=== PATIENT | male | born 1975 | race Caucasian/White ===

== ENCOUNTER 2021-01-08 22:16 | Emergency (ER) | payer SELFPAY ==
[2021-01-08 22:29] VITALS: BP 152/74; PULSE 68; RESP 18; TEMP 36.5; O2SAT 97; BMI 26.6
--- NOTE | 2021-01-08 22:34 | DI.RAD.S_ITS ---
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 COMPARISON: None. FINDINGS: Bones: No fractures or dislocations. No suspicious bony lesions. Visualized ribs appear intact. Mild periarticular osteophyte formation at the acromioclavicular and glenohumeral joints. Soft tissues: No suspicious soft tissue calcifications. Left axillary surgical clips. IMPRESSION: Osteoarthritis. No acute fracture. No osseous lesion. If symptoms and/or clinical suspicion for pathology persist, further assessment with repeat, or advanced imaging (e.g., CT, MRI, or bone scan) may be helpful for further assessment. Concordant with preliminary interpretation. Dictated by: Martha Prescott M.D. on 01/09/2021 at 7:33 Approved by: Martha Prescott M.D. on 01/09/2021 at 7:33
--- NOTE | 2021-01-08 22:38 | PC.NURSE ---
Patient states he feels pain in the shoulder muscle and has limited mobility starting about 3 days ago. Ibuprofen and rest help, but it has persisted.
--- NOTE | 2021-01-08 23:16 | ED_ITS ---
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 It started approximately 4 days ago he does not describe any significant trauma or injury. He has been having fevers or chills he does not notice redness or warmth. He has never had similar findings he notices no numbness tingling or weakness down the arm but he does has significantly limited range of motion secondary to pain. Related Data Allergies Allergy/AdvReac Type Severity Reaction Status Date / Time No Known Drug Allergies Allergy Verified 01/08/21 22:33 Review of Systems Review of Systems Narrative: Pertinent positive and negative findings as per HPI Remainder of review of systems is otherwise unremarkable for Constitutional: Fevers, chills, weakness ENT: No sore throat, neck pain, ear pain CV: Chest pain, palpitations, Respiratory: Cough, wheeze, dyspnea Patient History Medical History (Updated 01/09/21 @ 00:53 by Richelle Romero MD) Malignant melanoma Social History Smoking Status: Never smoker Smoking Status: Never smoker alcohol intake frequency: 0-2 drinks per day Substance Use Type: does not use Exam Narrative Exam Narrative: General: Alert appropriate in no acute distress Respiratory: Able to speak in full sentences, no obvious respiratory distress Skin: No obvious rashes, warm and dry Neurologic: Grossly intact no obvious asymmetries or abnormalities Psych: appropriate insight and affect, cooperative Extremity: Left shoulder is examined. There is no increased warmth, redness, fullness or point tenderness. He has pain with external rotation and abduction and is only able to externally rotate approximately 45? and abduct only to approximately 40?. 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 Initial Vital Signs Initial Vital Signs: Vital Signs Temperature 97.7 F 01/08/21 22:29 Pulse Rate 68 01/08/21 22:29 Respiratory Rate 18 01/08/21 22:29 Blood Pressure 152/74 H 01/08/21 22:29 Pulse Oximetry 97 07/31/21 22:29 Course Orders Ordered: ED Orders 01/08/21 22:34 XR shoulder LT min 2V Stat Vital Signs Vital signs: Vital Signs - 8 hr 01/08/21 22:29 Temperature 97.7 F Pulse Rate 68 Respiratory Rate 18 Blood Pressure 152/74 H Pulse Oximetry 97 MDM - Extremity (Nontraumatic) Imaging Data X-ray left shoulder: Radiologist's Impression: No acute findings Rylan Baum MD [facility] Narrative Medical decision making narrative: 45-year-old gentleman with acute onset of left shoulder pain. No trauma no obvious infection, injury, deformity bony abnormality or evidence of metastatic melanoma. Ibuprofen does help with his overall pain. X-rays are reassuring. He is placed in a sling and recommended orthopedic follow-up. 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 He is safe for discharge home at this time Discharge Plan Departure Patient Disposition: Home Clinical Impression: Shoulder pain, left Qualifiers: Chronicity: acute Qualified Code(s): M25.512 - Pain in left shoulder Instructions: DI for Shoulder Pain Activity Restrictions/Additional Instructions: Thank you for coming in tonight Your x-ray was unremarkable. There is no suggestion of infection or any findings to suggest any recurrent melanoma spreading to the bone in the shoulder. At this time I am going to suggest you continue to use ibuprofen. Using 400 mg of ibuprofen (2 [id number] pills) and 1 Tylenol every 6 hours can be very helpful in controlling pain. Use the sling as needed for pain control I would also suggest that you follow-up with [facility]. You can contact them at [phone] I hope you are feeling better
== END 2021-01-09 00:56 | disposition home or self-care (01) ==
PROVIDERS: Emergency Provider Emergency Medicine
DX: M25.512 Pain in left shoulder (principal)
CPT/HCPCS: 73030; 99283

== ENCOUNTER → 2023-08-30 10:56 | Outpatient (CLI) | payer MEDICARE, SELFPAY ==
[2023-08-30 12:22] LABS: Add Manual Diff / Slide Review NO; Basophils Absolute Auto 0 /uL (0-100); Basophils Percent Auto 0.5 % (0-2); Eosinophils Absolute Auto 100 /uL (0-450); Eosinophils Percent Auto 1.5 % (2-4); Hematocrit 47.5 % (41-53); Hemoglobin 16.3 g/dL (13.5-17.5); Lymphocytes Absolute Auto 2100 /uL (1100-4500); Lymphocytes Percent Auto 23.4 % (25-40); Mean Corpuscular HGB Conc 34.4 % (30-36); Mean Corpuscular Hemoglobin 31.7 PG (26-34); Mean Corpuscular Volume 91.9 fL (80-100); Monocytes Absolute Auto 600 /uL (0-900); Monocytes Percent Auto 7.2 % (3-14); Neutrophils Absolute Auto 6000 /uL (1500-7000); Neutrophils Percent Auto 67.4 % (50-75); Platelet Count 320 X10^3/uL (150-400); Red Blood Cell Count 5.16 X10^6/uL (4.5-5.9); Red Cell Distribution Width 12.5 % (11.6-14.8); White Blood Cell Count 8.9 X10^3/uL (4.5-11.0)
[2023-08-30 12:28] LABS: Hemoglobin A1C% w Est Avg Glu 4.5 % (4.0-6.0)
[2023-08-30 12:46] LABS: Alanine Aminotransferase 48 IU/L (<50); Albumin 4.4 g/dL (3.5-5.0); Albumin Globulin Ratio 1.2 (1.0-2.8); Alkaline Phosphatase 92 U/L (38-126); Aspartate Aminotransferase 31 IU/L (17-59); BUN Creatinine Ratio 15.6 (6-22); Bilirubin Total 0.9 mg/dL (0.2-1.3); Blood Urea Nitrogen 14 mg/dL (9-20); Calcium 9.4 mg/dL (8.4-10.2); Carbon Dioxide 28 mmol/L (22-32); Chloride 104 mmol/L (98-107); Estimated Glomerular Filt Rate > 60 mL/min (>60); Globulin 3.6 g/dL (1.7-4.1); Glucose 91 mg/dL (70-100); HEMOLYSIS < 15 (0-50); Potassium 4.3 mmol/L (3.4-5.1); Sodium 140 mmol/L (137-145)
[2023-09-03 09:48] LABS: Osmolality, Serum 289 mOsmol/kg (275-295)
== END ==
LOC: LAB 10:58
PROVIDERS: PCP Family Medicine; Referring Provider Family Medicine; Visit Provider Family Medicine
DX: R35.89 Other polyuria (principal)
CPT/HCPCS: 36415; 80053; 83036; 83930; 85025

== ENCOUNTER → 2023-08-31 13:06 | Outpatient (CLI) | payer MEDICARE, SELFPAY ==
[2023-08-31 14:25] LABS: Appearance Urine UA CLEAR; Bilirubin Urine UA NEGATIVE (NEGATIVE); Color Urine UA YELLOW; Glucose Urine UA NEGATIVE (Negative); Ketones Urine UA NEGATIVE (NEGATIVE); Leukocyte Esterase Urine UA NEGATIVE (NEGATIVE); Nitrite Urine UA NEGATIVE (Negative); Occult Blood Urine UA NEGATIVE (Negative); Protein Urine UA NEGATIVE (Negative); pH Urine UA 6.5 (4.5-8.0)
[2023-08-31 14:44] LABS: Bacteria Urine None Seen; RBC Urine None Seen (0-5/HPF); Squamous Epithelial Cell Urine 0-1 /HPF (0-5/HPF); Urine Volume 10mL (spun); WBC Urine 0-1/HPF (0-5/HPF)
[2023-08-31 14:45] LABS: Culture Indicated Urine Cult Not Indicated
[2023-09-03 15:31] LABS: Osmolality Urine 752 mOsmol/kg (.)
== END ==
PROVIDERS: PCP Family Medicine; Referring Provider Family Medicine; Visit Provider Family Medicine
DX: R35.89 Other polyuria (principal)
CPT/HCPCS: 81001; 83935

== ENCOUNTER 2024-01-17 07:16 | Day surgery (SDC) | payer MEDICARE, SELFPAY ==
--- NOTE | 2024-01-17 | PATH_ITS ---
[facility] Accession Number: [id number] No. of containers..01 Tissue . 01 Material submitted: . cecum - CECAL POLYPS . 01 Diagnosis: CECAL POLYP, BIOPSY: Tubular adenoma. LADARIUS 01/21/2024 1003 Local . 01 Electronically signed: . Canelo Urbano MD, Pathologist NPI- [id number] . 01 Gross description: . Received in formalin with two patient identifiers and cecal polyp, is a single spencer soft tissue fragment 0.8 cm in greatest dimension. Submitted in cassette A1. ([id number]) /LADARIUS 01/18/2024 0959 Local . 01 Microscopic: . Polypoid colonic mucosa composed of columnar epithelium with hyperchromatic crowded nuclei. Findings consistent with tubular adenoma. Negative for malignancy. . 01 Pathologist provided ICD-10: K63.5 . 01 CPT . 141010 Specimen Comment: A courtesy copy of this report has been sent to [phone] Performed at: [address] [facility] [address], [place], [place] [id number] MD Carter Killian MD Phone: [phone]
[2024-01-17 07:33] VITALS: BP 144/89; PULSE 80; RESP 16; TEMP 36.2; O2SAT 96
[2024-01-17] MEDS: LACTATED RINGERS 1,000 ML 42 ML IV (07:45)
--- NOTE | 2024-01-17 07:45 | PM.HP.1 ---
History of Present Illness History of Present Illness Date Patient Seen: 01/17/24 Time Patient Seen: 07:45 Chief complaint: Screening Colonoscopy Narrative: Rogelio is a 48-year-old man who is here for his first screening colonoscopy. No first-degree family members with colon cancer. [facility] Medical History (Updated 01/17/24 @ 07:46 by Zay Addison MD) GERD (gastroesophageal reflux disease) History of malignant melanoma Polyuria Social History Smoking Status: Never smoker Meds Home Medications and Allergies Home Medications Medication Instructions Recorded Confirmed Type famotidine 20 mg tablet (Pepcid) 20 mg PO DAILY #30 tabs 08/30/23 01/17/24 Rx Allergies Allergy/AdvReac Type Severity Reaction Status Date / Time No Known Drug Allergies Allergy Verified 01/17/24 07:32 Exam Vital Signs (past 8 hours): - 01/17/24 07:33 Temperature 97.1 F L Pulse Rate 80 Respiratory Rate 16 Blood Pressure 144/89 H Pulse Oximetry 96 Oxygen Delivery Method Room Air Oxygen Delivery Method Room Air Const General: healthy appearing Resp Effort & Inspection: normal respiratory effort Assessment & Plan Assessment and plan (1) Colon cancer screening: Status: Acute Plan We reviewed the risks and benefits of colonoscopy for colon cancer screening and he would like to proceed. Time-Based Coding :: [TOTAL MINUTES] spent with patient and on the chart (including review of chart, obtaining history, exam, reviewing outside data, placing orders, documenting exam and treatment plan, and counseling patient) on [DATE].
--- NOTE | 2024-01-17 08:43 | PM.OP.COLON ---
Operative Date/Time/Diagnoses Date of procedure: 01/17/24 Time of procedure: 08:43 Pre-op diagnosis: Colon cancer screening Post-op diagnosis: same Procedure & Clinicians Study performed: Colonoscopy Same procedure as scheduled: Yes Surgeon: Zay Addison Procedure Notes Procedure in detail: Surgeon: Zay Addison MD Anesthesia: Jessenia Mariano MD Procedure: The patient was brought to the endoscopy suite, placed in left lateral decubitus position. The patient was connected to monitoring devices. A time-out was performed. Sedation was administered. Once the patient was adequately sedated, a digital rectal exam was performed and was normal. The scope was then inserted and advanced to the cecum where the appendiceal orifice was identified and photographed. The scope was then slowly withdrawn over greater than 6 minutes. The mucosa was thoroughly inspected. There was a 7 mm polyp in the cecum removed with a cold snare. The scope was retroflexed in the rectum. No other abnormalities were found. The scope was straightened and removed. The patient was awakened and brought to recovery. Scope withdrawal time: 9 minutes Sedation time: 12 minutes EBL: 5 mL Findings: 7 mm polyp in the cecum Post-procedure Disposition: PACU
[2024-01-17 08:48] VITALS: BP 122/75; PULSE 77; RESP 14; TEMP 36.8; O2SAT 95
[2024-01-17 08:53] VITALS: BP 117/83; PULSE 73; RESP 14; O2SAT 94
[2024-01-17 08:58] VITALS: BP 117/75; PULSE 74; RESP 12; O2SAT 94
[2024-01-17 09:00] VITALS: BP 117/82; PULSE 69; RESP 17; TEMP 36.2; O2SAT 95
== END 2024-01-17 09:22 | disposition home or self-care (01) ==
PROVIDERS: PCP Family Medicine; Referring Provider Surgery; Visit Provider Surgery
PROC: 0DJD8ZZ Inspection of Lower Intestinal Tract, Via Natural or Artificial Opening Endoscopic (ICD-10-PCS; CPT 45378; principal; 2024-01-17 08:15)
DX: Z12.11 Encounter for screening for malignant neoplasm of colon (principal); D12.0 Benign neoplasm of cecum
CPT/HCPCS: 45385; J2704